=== PATIENT | female | born 1965 | race Caucasian/White ===

== ENCOUNTER 2016-08-31 08:15 | Emergency (ER) | payer OTHER ==
--- NOTE | 2016-09-05 10:35 | ER ---
ADMIT: 08/31/2016 RM/LOC: ER [facility] MR#: [id number] [address] KLAUDIA, GI J [address] [place] [address] Emergency Room Report SEX: F AGE: 51 : 1965 DATE: 08/31/2016 ADDENDUM: This is a 51-year-old white female coming in with acute onset of back pain. She has had this intermittently over the years, last one time was 3 years ago. Does not remember doing anything. Pain kind of radiates into her left gluteal area. We calmed this down with Dilaudid and Toradol. Also, gave her 20 of Decadron IV before she left. I put her on prednisone 20 b.i.d. for 3 days, starting in a.m. She does have [place] for pain. Home, rest. She needs to see Dr. Louise in the near future for a kind of re-evaluation since she has been kind of a recurrent problem. CONDITION ON DISCHARGE: Good. Hamilton Alvarado MD/ robin JOB #: [id number] CC: Hamilton Alvarado MD, Attending Physician UNKNOWN, Family Physician
== END 2016-08-31 11:00 | disposition home or self-care (01) ==
LOC: ER 08:15
DX: M54.5 Low back pain (principal); E11.9 Type 2 diabetes mellitus without complications; Z79.4 Long term (current) use of insulin; Z90.49 Acquired absence of other specified parts of digestive tract; Z79.84 Long term (current) use of oral hypoglycemic drugs; Z88.8 Allergy status to other drugs, medicaments and biological substances